=== PATIENT | male | born 1980 | race Caucasian/White ===

== ENCOUNTER 2016-07-02 11:19 | Emergency (ER) | payer MEDICAID ==
[~2016-07-02 11:19] MED LIST: ALBUTEROL17 GM; AMOXIL; CLARITIN-D1 TAB.SR; EPIPEN0.3 MG/0.3 IM; LORATADINE10 M2 PO; LORTAB 5/500 TA1 TAB; NAPROSYN500 MG PO; NORCO 5-325 TA1 EACH PO; PERCOCET 5-3251 EACH PO; PERCOCET 5/3251 TAB PO; PREDNISONE20 M1 PO; PREDNISONE20 MG PO; TRAMADOL HCL50 MG PO; VALIUM5 M1 PO; XANAX1 MG PO; ZANTAC150 MG PO; ZITHROMAX250 M1 PO; ZYRTEC10 MG PO
[2016-07-02] MEDS ORDERED: NORCO 5-325 TA1 EACH PO (12:14)
[2016-07-02] MEDS ORDERED: CIPRO HC OTIC S10 M1 LEFT EAR (12:14)
[2016-07-02] MEDS ORDERED: AUGMENTIN 875-1 EAC2 PO (12:14)
== END 2016-07-02 12:26 ==
LOC: EDMED 11:19
DX: H65.02 Acute serous otitis media, left ear (principal); H60.92 Unspecified otitis externa, left ear; F41.9 Anxiety disorder, unspecified; G47.30 Sleep apnea, unspecified; F17.200 Nicotine dependence, unspecified, uncomplicated